=== PATIENT | male | born 1945 | race Caucasian/White ===

== ENCOUNTER 2020-05-23 09:09 | Emergency (ER) | payer OTHER ==
[~2020-05-23] VITALS: Ht 172.7 cm; Wt 72.6 kg
[~2020-05-23 09:09] MED LIST: PROTONIX IV40 MG
[2020-05-23] MEDS ORDERED: PEPCID AC20 MG PO (15:19)
[2020-05-23] MEDS ORDERED: CHLORDIAZEPOXI1 EACH PO (15:19)
[2020-05-23] MEDS ORDERED: CELEBREX200MG PO (15:19)
== END 2020-05-23 15:57 | disposition home or self-care (01) ==
LOC: ER 09:09
DX: K66.0 Peritoneal adhesions (postprocedural) (postinfection) (principal); R10.32 Left lower quadrant pain

== ENCOUNTER 2020-05-25 08:47 | Emergency (ER) | payer OTHER ==
[~2020-05-25] VITALS: Ht 172.7 cm; Wt 72.6 kg
[~2020-05-25 08:47] MED LIST changes: +CELEBREX200MG PO; +CHLORDIAZEPOXI1 EACH PO; +PEPCID AC20 MG PO
== END 2020-05-25 14:34 | disposition home or self-care (01) ==
LOC: ER 08:47
DX: K57.90 Diverticulosis of intestine, part unspecified, without perforation or abscess without bleeding (principal); R10.12 Left upper quadrant pain

== ENCOUNTER 2020-06-23 08:45 | Day surgery (SDC) | payer OTHER | END 2020-06-23 12:40 | disposition home or self-care (01) | LOC: AMB-ENDOS 08:45 | PROVIDERS: ATTEND Surgery | DX: K62.89 Other specified diseases of anus and rectum (principal); K64.8 Other hemorrhoids; Z20.828 Contact with and (suspected) exposure to other viral communicable diseases ==